=== PATIENT | male | born 1990 | race Caucasian/White ===

== ENCOUNTER 2021-03-20 08:30 | Outpatient (RCR) | payer SELFPAY ==
--- NOTE | 2021-03-20 09:00 | BH.COMM ---
Communication Note - Communication with Client Communication Note: Completed initial paperwork. No significant changes since pre-admission screening. Symptoms remain the same. Completed [place] Suicide Screening with low-moderate risk. Denies active suicidal ideations, plan, or intent. No hx of suicide attempts. Consulted with Dr. Mulligan with verbal order to admit to IOP with MDD F33.2
--- NOTE | 2021-03-20 10:10 | BH.SGPN.GN ---
Behaviors/Verbalizations/Mental Status: []Client alert and oriented, casually dressed and groomed. Eye contact good. Motor activity appropriate. Speech within normal limits. Affect constricted, mood depressed. Thoughts linear, logical, no signs of hallucinations or delusions. Client Response/Progress/Benefit: []Pt was well engaged in group AEB taking notes and engaging in the activity. Attentive during psychoeducation and discussed the importance of goal-setting with the group. Group identified potential benefits of having goals include: giving direction, giving purpose, improving mood, and better relationships. Group also worked together to identify barriers to goal-setting which included; negative self-talk, fear of change, unrealistic expectations, and fear of failure. Pt was quit during session, but often nodding and he participated in the activity. Benefited from increased awareness of benefits and barriers to goal-setting. First day of IOP tx. Will continue IOP tx to prevent decompensation, reduce suicidal ideations, and improve daily functioning. Narrative Note: []
--- NOTE | 2021-03-21 13:25 | PCM.BH.PSYEV ---
Psychiatric Evaluation Initial Evaluation Initial Evaluation: History of Present Illness: [] The patient is a 31-year-old single [place] male with a history of depression and anxiety who was brought to the emergency room while on vacation in [place] on December 09, 2020 with a panic attack while hunting which resulted in passive suicidal ideation. The patient was not admitted at that time although he says he was there for 36 hours. The patient was referred to the [facility] program by his psychiatrist, Dr. Levy. 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 The patient complains of severe depression, lack of motivation, apathy and no will to live. He states that he is not sure what the point of life is. Patient has a history of bone cancer in 2013 at age 23 in his arm which required having his radius removed and replaced with his own tibia. The patient now has limited range of motion there and had chemotherapy and had septic shock postoperatively resulting in a traumatic experience. The patient also complains of nerve pain since he had COVID in November 2019 which he describes as a prickly, warm feeling which goes into his arms bilaterally and down his spine. The patient's symptoms worsened after his bone cancer experience. For primary support he has his parents. He describes having a depressed mood and hopelessness and worthlessness. He denies guilt. He is isolating himself and is not motivated but he does state that he wants to enjoy life again. He exercises daily. He is not enjoying much that he does but his appetite is good and his weight is stable. His sleep has been somewhat decreased for the past 7 years. His energy level is okay but his concentration is decreased and he says he always feels like his head is in a jumbled. He denies suicidal ideation but does admit to having passive thoughts that he would not care if he . He denies plan for suicide, homicidal ideation, hallucinations, delusions or symptoms of jolie ever. He denies history of self-harm. He drinks 1 caffeinated soda every 2 days. He is a worrier by nature and and ruminates negatively. He last had a panic attack in 2011. He denies a history of OCD, eating disorder, trauma or PTSD. Other stressors include his father having a stroke in the past and his brother having a traumatic brain injury in 2009 at age 20 which left the brother unable to work full-time and not completely himself anymore. This brother is 2 years older than the patient and they were very close. Current Psychiatric Medications: [] Wellbutrin XL 675 mg p.o. every morning (decreased gradually from 300 mg over the past few months); Remeron 45 mg p.o. nightly (dose last increased January 21, 2021); Seroquel 50 mg p.o. nightly (was on higher doses in the past few months but weaned); Ativan 1 mg nightly as needed (he takes anywhere from on average 1/2 to 1 mg nightly but some nights he takes none). Patient also had an excellent electric stimulation at his home by a provider on an FDA approved device. He had this done January and February for 2 weeks and it takes about 3 weeks after the last treatment to feel improvement. And then he states that after 6 weeks he may get more improvement. This 6 weeks abby is today or tomorrow. He also states that it can take up to 3 months for it to finish giving him improvement and this deadline would be the first week of May so the patient is hesitant to change much in his medication regimen until then. Past Psychiatric History: [] Possibly 1 psychiatric admission in December 2020 for 1 day or less. No suicide attempts ever. The patient first was depressed and anxious as a child with depression occurring at age 20 and anxiety since childhood. He has taken a number of medications in the past including Lexapro which was discontinued in April 2020 and higher doses of Wellbutrin in the past which made him feel jittery and agitated. He also took Prozac and Zoloft in the past. He took some benzodiazepines in the past and tried [id number] valerian root and [place]'s wort and melatonin but is not using these now. Substance Use History: [] No substance use whatsoever. Non-smoker no rehab ever. Allergies: [] No known allergies Medications: [] Psych meds plus multivitamin only. Past Medical History: [] He had a history of bone cancer in his arm in 2013. He has a history of nerve pain since having COVID in November 2019 where his only symptom really was severe headache. He received IV chemotherapy with 5 chemotherapy drugs including Cytoxan, etoposide, doxorubicin and vincristine in 2014 or so. He had septic shock following his surgery. He has a history of right shoulder pain. Family Psychiatric History: [] Mother is 50 years old and his father is in his upper 50s. Mother and maternal grandmother have anxiety. His dad and his paternal aunt have a history of depression and anxiety. No substance issues in the family. No suicides in the family. Personal/Social History: [] He was born and raised in [place]. Her. His parents are and loving. He denies any physical, sexual or verbal abuse. He has 3 brothers. 1 brother 2-1/2 years older who had a traumatic brain injury at age 20. He has a brother 4 years younger and her brother 13 years younger and he is very close to all of his brothers. School was good for the patient and he had straight A's. He did not go to high school because the [facility] do not go to high school. 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 He had 1 serious girlfriend for 5 months but no current girlfriend. Legal History: [] No arrests. 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 Review of Systems: [] Shoulder pain and prickly feelings and feelings of warmth in his spine and arms since he had COVID in 2019. Vital Signs: [] Reviewed in nurses notes. Mental Status Examination: [] The patient is a 31-year-old male who is seen via telehealth and appears normal for stated age and is casually dressed and groomed with good hygiene. He has no psychomotor agitation or retardation. Eye contact is good and speech is normal rate and rhythm and fluent with no pressure. He is cooperative during the interview. Mood is depressed. Affect is constricted. Thought process is goal-directed and organized. Thought content: There is evidence of passive thoughts of . There is no evidence of suicidal ideation, plan for suicide, homicidal ideation, hallucinations or delusions. Reality testing is intact. Intelligence is above average. Judgment is intact. Insight is limited but some present. Impulsivity is low. Diagnoses: [] 1. Major depressive disorder, recurrent, severe without psychosis 2. Generalized anxiety disorder 3. History of radial arm bone cancer and IV chemotherapy with 5 drugs in 2013 4. Primary support and work issues Plan: [] The patient will start the IOP program at [facility] in [facility] as the structure, support, education, and group therapy will hopefully prevent worsening of the patient's symptoms which might require hospitalization. He felt safe during the interview and if it anytime he does not feel safe he will let us know or go to the emergency room. The risks, options, possible complications and side effects of the medications were discussed with the patient and he understands and accepts these. He refuses any medication changes at this time as he wishes to wait to see in the next day or 2 if he gets an improvement in his symptoms from his past Nexalin treatment and also he wishes to possibly wait until the first week of May when the improvement from the Nexalin treatment may end. I discussed with the patient the options of transcranial magnetic stimulation therapy or ECT also as an option. In addition the patient has not been on ketamine or tried MAO inhibitor. No changes were made today due to the patient's request. He does not feel any medications have helped him that much but he is uncertain overall. I will see the patient in follow-up in 1 week and he will continue to follow-up with his outpatient providers.
--- NOTE | 2021-03-21 13:42 | BH.DR.ITP ---
Initial Treatment Plan Patient Information Visit Information: ADMISSION DATE: EXPECTED LOS: 4-6 weeks Problems/Symptoms Problem #1:: Depression Symptom:: Sadness, hopelessness, worthlessness, apathy, anhedonia, biological disruption of sleep, decreased concentration, passive thoughts of Problem #2:: Anxiety Symptom:: Worry, rumination
--- NOTE | 2021-03-23 09:05 | BH.SGPN.GN ---
Behaviors/Verbalizations/Mental Status: [] Eye contact is good. Motor activity is appropriate. Appearance is casual. Speech is Appropriate. Mood is anxious. Affect is congruent. Thoughts are linear and logical. No evidence of psychosis. Reviewed daily check in sheet and no reports of suicidal ideations or intent. Client Response/Progress/Benefit: [] Pt participated when prompted. Attentive. Nodding during other patient's check-ins and appears to relate to discussions on coping with depression and FOF. Emotion for today is optimistic. Daily symptom tracker notes 1/5 for depression and 2/5 for anxiety which is improvement from 03/19/21. Pt's check-in was very brief. This is his second day in IOP. Shared that he more positive and hopeful this week and attributes this mainly to external events. He is contemplating going back to work. He has been off for several months. Group provided feedback and advice for first week in IOP. Progress reported. Benefited from group support and encouragment. Will continue in IOP to prevent decompensation, increase healthy coping, and improve functioning to return to work. Narrative Note: []
--- NOTE | 2021-03-23 10:10 | BH.SGPN.GN ---
Behaviors/Verbalizations/Mental Status: [] Eye contact is good. Motor activity is appropriate. Appearance is casual. Speech is Appropriate. Mood is depressed. Affect is flat. Thoughts are linear and logical. No evidence of psychosis. Client Response/Progress/Benefit: [] Engaged in experiential activity with peers. Attentive during psychoeducation on what is social support, the benefits of social support, and the things that keep us from utilizing social support for mental wellness. Attentive during interaction discussion and feedback from peers on these subjects AEB head nodding and note-taking. Able to see connection between experiential activity and group topic. Benefited from increased awareness of the benefits of social support in maintain mental health. Will continue in IOP to prevent decompensation, increase healthy coping, and improve functioning to return to work. Narrative Note: []
--- NOTE | 2021-03-23 11:05 | BH.SGPN.GN ---
Behaviors/Verbalizations/Mental Status: []Client alert and oriented, casually dressed and groomed. Eye contact good. Motor activity appropriate. Speech within normal limits. Affect constricted, mood anxious. Thoughts linear, logical, no signs of hallucinations or delusions. Client Response/Progress/Benefit: []Client remained an active participant throughout AEB contributing to discussion and taking notes throughout. Participated in discussion of the 4 types of support and the group listed examples for all types. Client reports wanting to work on increasing emotional social support,, noting this will help client challenge distortions, feel connected and authentic, and improve communication. Client plans to do this by acknowledging his emotions and being honest with himself, identifying one support person to talk to, and scheduling a time to talk with this support. Client seemed to benefit from identifying the type of support and how this support will aid in promoting overall mental wellness. Will continue with IOP tx to prevent decompensation, gain healthy coping skills, and reduce negative thinking. Narrative Note: []
--- NOTE | 2021-03-29 15:03 | BH.DS_ITS ---
Discharge Summary - Demographics Date of Admission:: 03/20/21 Discharge Date: 03/29/21 Presenting Problems at Admission:: Pt is a 30 y/o male with hx of MDD and AIDA. Recent visit to ER in 12/2020 for crisis evaluation while vacationing in [place]. Pt presented to the ER in 12/2020 due to suicidal ideations and panic. According to pt there were no available psych beds there he was sent home. Upon returning home to [place] he followed up with counseling and psychiatry however with limited benefits. Denies active suicidal ideations, plan, or intent. No hx of attempts. Reports passive thoughts of and survival ambivalence. I just have no will to live. Long-standing depression and passive thoughts of since 2013. Pt was diagnosed with bone cancer and underwent chemo in 2013. Endorses no pleasure in activities, hopelessness, low motivation, and isolation. He has not worked for several months due to his mental health. Poor concentration, poor focus. Denies HI or psychosis. Family hx of depression (father). Primary stressors include his father's stroke and his brother's brain injury. Denies HI or psychosis. Denies substance abuse. Discharge Diagnoses:: MDD F33.2 Reason for Discharge:: Pt reported to staff that he enjoyed the IOP, but it wasn't for him. He had reported improvement in depressive symptoms which he attributed to a FDA approved neurostimulator treatments that he had been receiving at home for the past several months. He reported to staff that he believed that it was starting to take effect. - Treatment Progress During Treatment & Response: Limited progress noted as patient attended only 3 days of IOP. He reported that his depression had improved however he attributed this to external events. Pt was attentive during groups however did not participate much in group discussions. Issues Still to be Addressed:: Depression, mental health impacting functioning (not working due to MH) Discharge Recommendations/Instructions:: Pt is currently linked with [facility] Garcia at [facility] for therapy. Linked with Dr. Levy for psychiatry. Encouraged to follow up with these providers. Discharge Handout: Complete Discharge Handout with client on aftercare options and continuity of care.
== END 2021-03-29 14:42 | disposition home or self-care (01) ==
LOC: BHIOP 08:30
PROVIDERS: Referring Provider Psychiatry & Neurology Psychiatry; Visit Provider Psychiatry & Neurology Psychiatry
DX: F33.2 Major depressive disorder, recurrent severe without psychotic features (principal); F41.8 Other specified anxiety disorders; Z85.830 Personal history of malignant neoplasm of bone; Z92.21 Personal history of antineoplastic chemotherapy
CPT/HCPCS: S9480; 90853

== ENCOUNTER 2021-06-21 09:40 | Outpatient (RCR) | payer SELFPAY ==
--- NOTE | 2021-06-21 09:00 | BH.SGPN.GN ---
Behaviors/Verbalizations/Mental Status: [] Eye contact is good. Motor activity is appropriate. Appearance is casual. Speech is Appropriate. Mood is anxious. Affect is congruent. Thoughts are linear and logical. No evidence of psychosis. Reviewed daily check in sheet and no reports of suicidal ideations or intent. Client Response/Progress/Benefit: [] Pt participated when prompted. Attentive. This was patients first day in IOP. He introduced himself and stated that he hopes to learn new skills, set goals in his life, and improve his quality of life. He states that he wants his mental health to be more stable. No progress noted. Group provided support, encouragement, and gave feedback/advice for his first day in IOP which was beneficial. Plan is to continue in [facility] to maintain safety, increased healthy coping, and improve functioning. Narrative Note: []
--- NOTE | 2021-06-21 11:18 | BH.SGPN.GN ---
Behaviors/Verbalizations/Mental Status: []Client alert and oriented, casually dressed and groomed. Eye contact fair to good. Motor activity appropriate. Speech within normal limits, limited input provided. Affect constricted, mood anxious, depressed. Thoughts linear, logical, no signs of hallucinations or delusions. Client Response/Progress/Benefit: []Pt responded well to session AEB listening attentively to peers and taking notes throughout. Pt attentive during continued psychoeducation on the different boundary types as well as the various boundary setting styles. Pt noted connecting most with the porous and rigid boundary setting styles. Pt shared he struggles at times to give himself compassion and relies heavily on the opinions of others. Pt was given a handout on strategies for healthy boundary setting. Pt identified wanting to work on improving his rigid boundaries by challenging himself to be more willing to make decisions without seeking approval or permission from others. Appeared to benefit from increasing insight into boundary setting and the impacts on mental health. Progress limited as pt first day in tx. Will continue IOP tx to prevent decompensation, improve depression management skills, and encourage healthy coping behaviors. Narrative Note: []
--- NOTE | 2021-06-21 14:26 | BH.COMM ---
Communication Note - Communication with Client Communication Note: Completed initial paperwork. No significant changes since pre-admission screening. Pt denies any active SI, plan, or intent. Admits to occasional, fleeting SI that last a few seconds-minutes. Denies he has ever had any intent to act on these thoughts. No history of attempts. Family is a protective factor. Consulted with Dr. Mulligan with verbal order to admit to IOP with dx of MDD F33.2
--- NOTE | 2021-06-26 09:00 | BH.SGPN.GN ---
Behaviors/Verbalizations/Mental Status: [] Eye contact is good. Motor activity is appropriate. Appearance is casual. Speech is Appropriate. Mood is depressed. Affect is flat. Thoughts are linear and logical. No evidence of psychosis. Reviewed daily check in sheet and no reports of suicidal ideations or intent. Client Response/Progress/Benefit: [] Pt participated when prompted. Attentive. Emotion for today is gloomy. Reports being extremely unmotivated over the weekend and in general. Its a chore to even complete a task. He is utilizing opposite-action to complete daily tasks which he states is ed beneficial. Group empathized with low energy and motivation being obstacle to progress. Group shared some thoughts on force self to complete activities that used to bring pleasure to re-wire the brain and kick start positive chemicals. Benefited from group support and encouragement. Limites progress as pt reports being disconnected. Will continue in IOP to maintain safety, increase healthy coping, and improve functioning. Narrative Note: []
--- NOTE | 2021-06-26 10:16 | BH.SGPN.GN ---
Behaviors/Verbalizations/Mental Status: []Pt alert and oriented, casually dressed and groomed. Eye contact good. Motor activity appropriate. Speech within normal limits. Affect constricted, mood depressed. Thoughts linear, logical, no signs of hallucinations or delusions. Client Response/Progress/Benefit: []Pt receptive to session, listening attentively and taking notes as the group brainstormed the positive and negative aspects of stress on physical and mental health. Identified racing thoughts and GI issues. Group worked together to define stress and provided input during discussion about eustress vs distress. Pt identified personal stressors which included: physical health, mental health, employment, isolation, pandemic, finances, and communication. Pt reports belief that his stress jar is very full and when it gets full, pt isolates and gets more depressed. Seemed to benefit from increased awareness of current stressors and impact of too much stress on the mind and body. Will continue IOP tx to prevent decompensation, gain healthy coping skills, and combat distortions. Narrative Note: []
--- NOTE | 2021-06-26 14:07 | BH.MDN ---
Multi-Disciplinary Note - Note 30-min Individual Time Started:: 11:13 Date: 06/26/21 Purpose of session/treatment goals addressed:: To gather information on client's current stressors, symptoms, triggers, and tx goals. Another goal was to build rapport and provide emotional support. Eye Contact:: Good Motor Activity:: Appropriate Appearance:: Casual Speech:: Soft Mood:: Dysthymic Affect:: Constricted Thoughts:: Linear, Logical, No evidence of hallucinations/delusions noted Staff Interventions:: psychoeducation on: - depression, rapport building, strengths perspective, treatment planning Client Response:: Pt responded well to session, open to meeting with therapist. Pt stated he wants to focus mostly on reducing and managing his depression. Pt shared he has been struggling with depression since his cancer diagnosis eight years ago, but the COVID pandemic made things worse. Pt stated he has been doing slightly better following a medication change, but he continues to struggle with hopelessness and purposelessness. Pt's goal are to feel better, get back to work, find meaning and purpose in life, reduce black and white thinking, and give himself credit. Pt would also like to get back into his old hobbies like playing softball, volleyball, and exploring carpentry. Pt has an outpatient counselor at [facility], but shared he has struggled to find anything that helps yet. Receptive to learning more about maintenance cycles and how to break a depressive maintenance cycle. Pt will be virtual tomorrow for psychiatry and attend in person on 06/29/21. Risks/Concerns:: Pt denies any active suicidal ideations, plan, or intent as of 06/26/21. Denies any HI. Future oriented. Progress Toward Goals/Plan:: Pt started IOP tx on 06/21/21 but reports enjoying IOP so far. Briefly participated in IOP tx in March 2021 but did not complete the program. Pt reports he has felt depressed and down for a while now and is ready to feel different. Pt currently endorses a depressed mood, low energy, lack of motivation, anhedonia, hopelessness, and worthlessness. Pt also struggles with negative thinking patterns and negative self-talk. Pt receptive during session and is established with outpatient mental health services. Will continue IOP tx to prevent decompensation, increase motivation, and improve daily functioning. Time Stopped:: 11:30
--- NOTE | 2021-06-26 14:13 | BH.MTP_ITS ---
[facility] Treatment Plan - Patient Information Program Physician:: Dr. Nicole Shelton Primary Therapist:: Irma BARROW - Psychiatric Diagnoses Psychiatric Diagnoses:: Major depressive disorder, recurrent, severe without psychosis F 33.2; Generalized anxiety disorder Diagnosis Code(s):: F 33.2 - Estimated LOS Estimated LOS (in weeks):: 6 Problem/Goal #1 - Problem/Goal #1 Stated Goal:: pt will decrease depressive symptoms, isolation, negative self- talk, and passive wishes due to major depression disorder. Description of Barriers: Pt currently finds little enjoyment in life and is struggling to find meaning in his life. Pt reports a lot of his friends are and have children, which impacts his social support. Pt endorses many negative thoughts about himself. Functional Impact: Pt is a 31-year-old male with a history of depression and anxiety. Pt was referred to [facility] following a recent admission to [facility] for a psychiatric admission due to depression and suicidal ideations. Pt had previously started IOP tx for 1-2 days in March 2021. Pt reports his depressive symptoms have been worsening since April 2021 and his functioning was impacted. Pt currently endorses low energy, lack of motivation, anhedonia, isolative behaviors, hopelessness, and a sense of purposelessness. 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 At admission, pt denied any active suicidal ideations, but he admits to fleeting, passive SI a few times a week. Pt reports feeling like life has no meaning. History of anxiety, but stated his anxiety is much improved since discharge from the hospital. Pt's symptoms are impacting his overall functioning. Goal Relevant Strengths/Supports: Pt is established with outpatient counseling and psychiatry. Pt reports his family is very supportive. - Objectives Objective #1 Stated Objective: pt will learn and utilize 2-3 healthy coping strategies to better manage depressive symptoms as shown by a reduced DSM-5 scores for depression. Interventions: Through group and individual sessions, therapist will help pt identify triggers and warning signs of depression and emotional dysregulation including emotional, physical, and behavioral changes. Therapist will teach pt various coping skills to manage her symptoms and give pt tangible resources to use to regulate emotions. Therapist will use cognitive restructuring techniques and help pt gain awareness of negative thoughts that reinforce guilt and depression. Therapist will provide psychoeducation on maintenance cycles and help pt learn ways to break unhealthy maintenance cycles. Therapist will help pt incorporate behavioral activation and assist pt in setting SMART goals. Discharge Criteria: Pt will have met this goal when can report learning and using at least 2 coping skills to manage depressive symptoms. Additionally, pt will have met this goal when depressive symptoms have reduced on the DSM-5 scale. Target Date: 08/02/21 Review Date: 07/12/21 Status: open Objective #2 Stated Objective: Pt will identify at least 2-3 negative self-talk messages used to reinforce negative core beliefs and replace thoughts with positive, realistic messages. Interventions: therapist will help pt identify distorted, negative beliefs about self and replace with more realistic, affirmative messages. Therapist will use CBT to help pt increase insight to the connection between thoughts, emotions, and behaviors. Therapist will encourage pt to practice thought challenging. Discharge Criteria: Pt will have achieved this goal when can verbalize at least 2 negative self-talk messages and effectively replace those thoughts with affirmative, realistic messages. Target Date: 08/02/21 Review Date: 07/12/21 Status: open Problem/Goal #2 - Problem/Goal #2 Stated Goal:: Pt will reduce anxiety symptoms while increasing ability to function on daily basis. Description of Barriers: Pt currently finds little enjoyment in life and is struggling to find meaning in his life. Pt reports a lot of his friends are and have children, which impacts his social support. Pt endorses many negative thoughts about himself. Functional Impact: Pt is a 31-year-old male with a history of depression and anxiety. Pt was referred to [facility] following a recent admission to [facility] for a psychiatric admission due to depression and suicidal ideations. Pt had previously started IOP tx for 1-2 days in March 2021. Pt reports his depressive symptoms have been worsening since April 2021 and his functioning was impacted. Pt currently endorses low energy, lack of motivation, anhedonia, isolative behaviors, hopelessness, and a sense of purposelessness. 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 At admission, pt denied any active suicidal ideations, but he admits to fleeting, passive SI a few times a week. Pt reports feeling like life has no meaning. History of anxiety, but stated his anxiety is much improved since discharge from the hospital. Pt's symptoms are impacting his overall functioning. Goal Relevant Strengths/Supports: Pt is established with outpatient counseling and psychiatry. Pt reports his family is very supportive. - Objectives Objective #1 Stated Objective: pt will identify 2-3 anxiety triggers and 2 calming coping skills to reduce anxiety as shown by decreased DSM-5 cross cutting symptom measure scores. Interventions: Therapist will help pt increase awareness of anxiety triggers and avoidance behaviors. Therapist will teach pt various calming and mindfulness strategies to promote emotional regulation and reduction of anxiety. Therapist will encourage pt to implement healthy coping skills on a regular basis and increase self-care in all areas. Discharge Criteria: pt will have accomplished this goal when can report at least 2 triggers for anxiety and 2 calming strategies to manage symptoms. Additionally, pt will have accomplished this goal when pt can report reduced DSM-5 cross cutting symptoms for anxiety. Target Date: 08/02/21 Review Date: 07/12/21 Status: open Objective #2 Stated Objective: pt will identify 2-3 cognitive distortions that lead to rumination and learn 2-3 ways to manage these thoughts to better manage anxiety Interventions: Therapist will provide education on the most common cognitive distortions and teach pt the connection between thoughts, emotions, and fe elings. Therapist will assist pt in identifying, challenging, and replacing dysfunctional thoughts with positive, more realistic thoughts. Therapist will use CBT and DBT techniques to help pt gain awareness of thinking errors and learn how to more effectively handle negative thoughts. Therapist will also use self-compassion to help pt set more realistic expectations for himself Discharge Criteria: Pt will have accomplished this goal when can identify at least 2 cognitive distortions and at least 2 coping skills to manage negative thoughts. Target Date: 08/02/21 Review Date: 07/12/21 Status: open
--- NOTE | 2021-06-26 14:13 | BH.PSA_ITS ---
Source of Information - Presenting Problems/Circumstances Problems, Referral Source, Mental Status, Client: Pt is a 31-year-old male with a history of depression and anxiety. Pt was referred to [facility] following a recent admission to [facility] for a psychiatric admission due to depression and suicidal ideations. Pt had previously started IOP tx for 1-2 days in March 2021. Pt reports his depressive symptoms have been worsening since April 2021 and his functioning was impacted. Pt currently endorses low energy, lack of motivation, anhedonia, isolative behaviors, hopelessness, and a sense of purposelessness. 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 At admission, pt denied any active suicidal ideations, but he admits to fleeting, passive SI a few times a week. Pt reports feeling like life has no meaning. History of anxiety, but stated his anxiety is much improved since discharge from the hospital. Pt's symptoms are impacting his overall functioning. Psychiatric Presentation - Psych Issues & Need for Admission Psychiatric Issues:: Major depressive disorder, recurrent, severe without psychosis F 33.2; Generalized anxiety disorder Past Psychiatric History - Treatment Hx Treatment History: Pt has a history of two psychiatric admissions total. The first one was in December 2020 for 2 days or so. The second admission was from May 04 to May 21, 2021 at [facility]. He denies any suicide attempts ever. He was anxious as a child and then had his first depression at age 20. He has taken a lot of medications in the past including Lexapro, Wellbutrin which made him feel jittery and agitated. He took Prozac and Zoloft in the past. He tried benzodiazepines in the past and [id number] valerian root and Urbano's wort but they were not helpful. He is also taken Seroquel and Ativan in the past. He tried an electric stimulation FDA approved device in the past also. Pt has been seeing Dr. Maguire as his psychiatrist for the past 3 months and states he has a good relationship with him. First hospitalization:: 12/2020 Most recent hospitalization:: 05/04/21-05/21/21 at [facility] Medication Trials:: Yes ECT Therapy:: Yes Age of first mental health symptoms: See treatment history Describe (age, circumstance, etc) any past hospitalizations: See treatment history Current providers for mental health treatment (counselor, psychiatrist, case repairer, etc.): Dr. Maguier for medication management and Fish raza [facility] for individual counseling. Development & Family of Origin - Childhood Significant Childhood Events: Pt reports he had a good childhood and denied any abuse. - Family Who currently lives in your home?: Pt lives at home with his parents and siblings. Describe family composition:: Pt was born and raised in [place]. Pt's parents are and loving and supportive of him. He denies any physical, sexual or verbal abuse. Pt has 3 brothers. He has one brother 2-1/2 years older than him who had a traumatic brain injury at age 20. He has a brother 4 years younger and a brother 13 years younger and he is very close to all of his brothers. Pt has been in one serious relationship, but is not currently in one. Pt has no children. - Family History Family Hx of Psychiatric or AOD Problems: Mother and maternal grandmother have anxiety. Father and paternal aunt have a history of depression and anxiety. No substance issues in the family. No suicides in the family. Ethnicity - Culture Do you identify yourself with any particular cultural, ethnic background, or community?: Yes - Pt is Denominational - Sexuality Sexual Orientation: Heterosexual Spirituality - Congregational Do you currently identify with any organized yarsanism?: Denominational - Pt gets a lot of support from the Denominational community. - Beliefs Is there a particular form of support from this community you can use for your recovery?: Yes Mental Status - Memory Recent Memory: Good Remote Memory: Good - Concentration Concentration: Good - Eye Contact Eye Contact: Good - Speech Speech: Articulate - Thought Process Thought Process: Ruminations Insight: Good Judgment: Fair Behavior: Normal - Orientation Orientation: Time, Person, Place, Situation - Appearance Appearance: Appropriate - Mood Mood: Depressed - Affect Affect: Constricted Suicide Assessment - Suicidal Ideation Have you ever felt like hurting yourself?: Yes Were you using ETOH/drugs at the time?: No Suicidal Intentional Rating Scale (SIRS): Suicidal thoughts (past) Physician Notification: If Active suicidal thoughts/Will not contract for safety is checked, contact physician and document in the Physician Notification section below. Violent Behavior/Abuse History - Homicidal Ideation Do you have any homicidal thoughts? If so, explain:: No Is there a known potential victim? If yes, who:: No - Abuse Have you ever been abused?: No - Life Events Are there any other significant life events?: Hardships, Family illness - Safety Do you ever feel threatened in your home? If yes, describe:: No Adult Social History - Age 19 to Present Describe your current support system:: Pt identifies his family, youth group, and isela. Substance Use - Substance Substance Use Type: None - He denies any substance use whatsoever. Non-smoker and no rehab ever. No vaping. No marijuana. Leisure/Social Activities - Interests What do you enjoy or might be interested in learning about?: Pt enjoys being in nature, hunting, playing sports, and spending time with family. Education & Occupational Histo - Education What is your level of education?: Middle School (Gr. 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 Service - Service Have you ever been in the ?: No Legal History - Records Have you had any past legal charges?: No Do you have any current legal charges?: No Have you ever been incarcerated? If yes, describe:: No - Court Orders Have you had any past court orders for psychiatric treatment?: No Do you have a present court order for psychiatric treatment?: No Problem Checklist - Current Problem Areas Problem List: Depressed mood/sad, Anxiety, Inattention, Sleep problems, Pertinent health issues, Additional psychosocial stressors Discharge Planning Needs - Anticipated Follow-Up Mental Health Center (Name/Phone Number):: [facility] Private Therapist/Psychiatrist:: Fish Garcia [phone] Manager Of Finance's Assessment - Client's Needs What are the client's strengths?: Pt is established with outpatient counseling and psychiatry. Pt reports his family is very supportive. Diagnoses - Diagnoses Diagnosis #1:: Major depressive disorder, recurrent, severe without psychosis F 33.2 Diagnosis #2:: Generalized anxiety disorder Interpretive Summary - Interpretive Summary Interpretive Summary: Pt is a 31-year-old Denominational single male who is currently living with his parents and two brothers who was referred to the IOP program at [facility] after being admitted to psychiatry at [facility] from May 04 to May 21, 2021 due to suicidal ideation, anxiety and insomnia. Pt participated in the [facility] IOP program for a few days in March 2021, but pt reports he was ?not in the right headspace? at that time. He has a long history of depression for the past 10 years which increased after being diagnosed with bone cancer 8 years ago. Pt states that he also had COVID in November 2019 and feels that his anxiety and depression worsened again after the COVID diagnosis. For primary support he has his parents and he is heavily involved in the [employer] [place] and community. He has no girlfriend currently. He is working part-time in the [employer] business but at limited hours due to his mental health issues. He states that since his hospitalization and discharge on May 21 he is feeling somewhat better. His anxiety is much improved but he states that he is still fairly depressed. He is less depressed than at the time of admission but still depressed. He denies hopelessness but he does say he occasionally has worthlessness feelings and he states that everything feels pointless. Pt reports this reduces motivation to do much. He is not enjoying anything he does still. Appetite is good and sleep is good at 8 to 9 hours a night, but sleep has been poor in the past. His energy level is okay during the day but his concentration is decreased. He denies feeling guilty. He is a worrier by nature but says he is not worrying as much lately but he still is of is avoiding things. He denies panic attacks, OCD, eating disorder, trauma, PTSD or history of self-harm. He admits to passive thoughts that he would not care if he on occasion about twice a week but this is less than before. He denies any suicidal ideation whatsoever now and has no plan for suicide. He also denies homicidal ideation, hallucinations, delusions or symptoms of jolie ever. He denies any substance use ever. No history of trauma or abuse. Family history of anxiety and depression. Pt?s older brother had a traumatic brain injury when pt was a teenager. Pt is close with all his family. Treatment Plan Recommendations - Recommendations Guidelines: Special needs identified to be included in the development of an individualized treatment plan regarding past psychiatric history and treatment, developmental events, family relationships/events/culture, past and/or current educational, occupational, social, and residential experience, and legal status. Recommendations:: Pt will start the IOP program at [facility] as the structure, support, education and group therapy will hopefully prevent worsening of the pt's symptoms which might require rehospitalization. He felt safe during the interview and if it anytime he does not feel safe he will let us know or go to the emergency room. The risks, options, possible complications and side effects of the medications were discussed between pt and IOP psychiatrist and he understands and accepts these. No medication changes were made today as they have been recently changed and he is closely following up with his outpatient psychiatrist. Pt encouraged to continue with out patient counseling.
--- NOTE | 2021-06-27 12:10 | BH.PSY.EVA_ITS ---
Psychiatric Evaluation Initial Evaluation Initial Evaluation: History of Present Illness: [] The patient is a 31-year-old [facility] single male who is currently living with his parents and 2 brothers who was referred to the IOP program at [facility] after being admitted to psychiatry at [facility] from May 04 to May 21, 2021 due to suicidal ideation, anxiety and insomnia. Patient participated in the [place] IOP program for a few days in March 2021. He has a long history of depression for the past 10 years which increased after being diagnosed with bone cancer 8 years ago. The patient states that he also had COVID in November 2019 and feels that his anxiety and depression worsened again after the COVID diagnosis. For primary support he has his parents and he is heavily involved in the [facility] [employer] and community. He has no girlfriend currently. 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 He states that since his hospitalization and discharge on May 21 he is feeling somewhat better. His anxiety is much improved but he states that he is still fairly depressed. He is less depressed than at the time of admission but still depressed. He denies hopelessness but he does say he occasionally has worthlessness feelings and he states that everything feels pointless. He says there is no spice to life. He is not motivated to do much. He is not enjoying anything he does still. Appetite is good and sleep is good at 8 to 9 hours a night. His energy level is okay during the day but his concentration is decreased. He denies feeling guilty. He is a worrier by nature but says he is not worrying as much lately but he still is of is avoiding things. He denies panic attacks, OCD, eating disorder, trauma, PTSD or history of self-harm. He admits to passive thoughts that he would not care if he on occasion about twice a week but this is less than before. He denies any suicidal ideation whatsoever now and has no plan for suicide. He also denies homicidal ideation, hallucinations, delusions or symptoms of jolie ever. He is using about 1 can of pop with caffeine per day but no other. Current Psychiatric Medications: [] Zyprexa 10 mg p.o. nightly and 2.5 mg p.o. twice daily (x1 month now); melatonin 3 mg p.o. nightly; Effexor XR 150 mg p.o. daily (since psych admit); Remeron 30 mg p.o. nightly Past Psychiatric History: [] He has a history of 2 psychiatric admissions total. The first 1 was in December 2020 for 2 days or so. The second admission was as dictated above from May 04 to May 21, 2021 at [facility]. He denies any suicide attempts ever. He was first depressed and anxious as a child and then had his first depression at age 20. He has taken a lot of medications in the past including Lexapro, Wellbutrin which made him feel jittery and agitated. He took Prozac and Zoloft in the past. He tried benzodiazepines in the past and [id number] valerian root root and Ehrenberg's wort but they were not helpful. He is also taken Seroquel and Ativan in the past. He tried an electric stimulation FDA approved device in the past also. Patient has been seeing Dr. Maguire as his psychiatrist for the past 3 months and states he has a good relationship with him. Substance Use History: [] He denies any substance use whatsoever. Non-smoker and no rehab ever. No vaping. No marijuana. Allergies: [] No known allergies Medications: [] Psych meds plus multivitamins only Past Medical History: [] History of bone cancer in his arm in 2013. He has a history of nerve pain and having COVID in November 2019. For his bone cancer he had IV chemotherapy with 5 drugs including Cytoxan, etoposide, doxorubicin and vincristine in 2013 or so. He had septic shock following his surgery. He has a history of right shoulder pain. Family Psychiatric History: [] His mother is in her upper 50s and father is in his upper 50s. Mother and maternal grandmother have anxiety. Father and paternal aunt have a history of depression and anxiety. No substance issues in the family. No suicides in the family. Personal/Social History: [] He was born and raised in [facility] [facility]. His parents are and loving and supportive of him. He denies any physical, sexual or verbal abuse. He has 3 brothers. He has 1 brother 2-1/2 years older than him who had a traumatic brain injury at age 20. He has a brother 4 years younger and a brother 13 years younger and he is very close to all of his brothers. He did well in school and had straight A's. He did not go to high school because he almost did not go to high school and they are active in the [facility] community. 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 He had 1 serious girlfriend in the past for 5 months but has no current girlfriend. Legal History: [] No arrests. No limo driver's license because the [facility] do not get limo driver's license. Review of Systems: [] He has a history of shoulder pain and prickly feelings and feelings of warmth in his spine and arms since COVID in 2019. Vital Signs: [] Vital signs and laboratory were reviewed in the records from his inpatient admission recently and in the nurses notes and were updated and the patient is deemed medically able to participate in the IOP program. Mental Status Examination: [] The patient is a 31-year-old male who is seen by telehealth. I am unable to see his eyes or face due to extremely poor dark lighting which the patient is unable to fix during the interview. Unable to evaluate eye contact. Speech is normal rate and rhythm and fluent with no pressure. He has no appearance agitation or retardation psychomotor. He is cooperative and pleasant during the interview. Mood is depressed. Affect is mildly constricted. Thought process is goal-directed and organized. Thought content: There is evidence of passive thoughts of on occasion. There is no evidence of suicidal ideation, plan for suicide, homicidal ideation, hallucinations or delusions. Reality testing is intact. Intelligence is above average. Judgment is intact. Insight is fair. Impulsivity is low. Diagnoses: [] 1. Major depressive disorder, recurrent, severe without psychosis 2. Generalized anxiety disorder 3. History of radial arm bone cancer and IV chemotherapy with 5 drugs in 2013 4. History of COVID in November 2019 5. Primary support and work issues Plan: [] The patient will start the IOP program at [facility] as the structure, support, education and group therapy will hopefully prevent worsening of the patient's symptoms which might require rehospitalization. He felt safe during the interview and if it anytime he does not feel safe he will let us know or go to the emergency room. The risks, options, possible complications and side effects of the medications were discussed with the patient and he understands and accepts these. No medication changes were made today as they have been recently changed and he is closely following up with his outpatient psychiatrist. The patient will continue to follow-up with his outpatient providers and I will see the patient in follow-up in 1 to 2 weeks. He has an appointment with his outpatient psychiatrist in 5 or 6 days.
--- NOTE | 2021-06-27 12:24 | BH.DR.ITP ---
Initial Treatment Plan Patient Information Visit Information: ADMISSION DATE: EXPECTED LOS: 4-6 weeks Problems/Symptoms Problem #1:: Depression Symptom:: Worthlessness, sadness, anhedonia, decreased concentration, passive thoughts of Symptom:: Recent suicidal ideation (May 2021) Problem #2:: Anxiety Symptom:: Worry, rumination
--- NOTE | 2021-06-29 14:24 | BH.MDN ---
Multi-Disciplinary Note - Note 60-min Individual Time Started:: 09:00 Date: 06/29/21 Staff Interventions:: thought challenging - reviewed thought log, CBT techniques - education on cognitive triangle and behavior activation, rapport building, strengths perspective, goal setting, taught coping skills Client Response:: Pt reported overall he has been doing okay in the last couple of days. Pt stated he went out with friends last night for dinner which he stated was good to get out of the house. Pt reported his main concern/struggle is not feeling like he has a purpose and meaning to life. Pt reported he has been struggling off and on with this since recovering from cancer 8 years ago. Pt reported his anxiety has significantly decreased in the last couple of weeks which he attributes to the medication working. Pt reported his depression has been more impactful recently. Pt stated his depression keeps him from enjoying things and impacted his job. 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 Pt connected with education about cognitive triangle, noting he has had some education about connection between thoughts, feelings and behaviors. Pt stated he has been engaging in behavior activation by making himself to things despite not wanting to do anything. Pt reported he can note that making himself not isolate or do certain tasks does make him feel better. Recognizes the alternative of behavior activation is doing nothing which he knows doesn't help him feel better. Pt shared thought log he completed in the last month. On the thought log pt was able to identify negative thoughts, identify the distorted thought and create a rational counterstatement. Pt shared one of his negative thoughts is I should be emotionally stronger. Pt stated this thought triggers other negative thoughts like Why can't I feel better? and Why does this bother me so much. Pt able to challenge negative thought and connected with therapist education about importance of looking for evidence against his negative thinking. Pt reported he is starting to have more clarity which has helped him with challenge distorted thoughts. Pt stated unrealistic expectations can cause more distress for him because his goals tend to be significantly higher than his current functioning which results in him not meeting the goal. Agreed he could benefit from practicing setting weekly goals to improve ability to set realistic goals. Pt reported goal for the week is to write down one win from his day everyday. Additional goal is to spend 20 minutes at least 2 times a week exercising. Risks/Concerns:: Denies current suicidal ideation, plan or intention to date. future focused. Progress Toward Goals/Plan:: Progress noted with pt reporting decrease in anxious symptoms which has helped pt be able to think more clearly and has decreased isolative behaviors. Pt continues to struggle with depressed symptoms and difficulty feeling like there is a purpose to life. Pt's negative thinking seems to be barrier to treatment progress because will predict a negative outcome to a situation or event which then makes it difficult for pt to be in the moment or enjoy himself. Pt to continue IOP to increase healthy coping skills, improve confidence, challenge negative thinking and prevent decompensation. Time Stopped:: 09:58
--- NOTE | 2021-07-03 09:05 | BH.SGPN.GN ---
Behaviors/Verbalizations/Mental Status: [] Eye contact is good. Motor activity is appropriate. Appearance is casual. Speech is Appropriate. Mood is depressed. Affect is flat. Thoughts are linear and logical. No evidence of psychosis. Reviewed daily check in sheet and no reports of suicidal ideations or intent. Client Response/Progress/Benefit: [] Pt participated at times during the group discussion. Group watched short video on CBT and discussed. Daily symptom tracker notes /5 for depression and /5 for anxiety. Emotion for today is hopeful. Mental health wins include pleasant weekend. Shared some of his activities over the weekend and how they helped. Notes decreased anxiety and depression however reports that his mood is still inconsistent and fluctuating. Did go to work yesterday and stated it wasn't too overwhelming. Progress noted per pt report. Benefited from group support, encouragement, and feedback. Will continue in IOP to maintain safety, increase healthy coping, and improve functioning. Narrative Note: []
--- NOTE | 2021-07-03 10:15 | BH.SGPN.GN ---
Behaviors/Verbalizations/Mental Status: []Pt alert and oriented, casually dressed and groomed. Eye contact good. Motor activity appropriate. Speech within normal limits. Affect constricted, mood dysthymic. Thoughts linear, logical, no signs of hallucinations or delusions. Client Response/Progress/Benefit: []Pt responded well to session AEB pt attentive throughout group discussion. Group discussed the origin of coping skills, examples of unhealthy coping, and why we use unhealthy coping skills. Pt was quiet, but he was nodding at the examples of unhealthy skills people use to ?carry the load.? Pt participated in experiential activity that showed the importance of external supports and internal coping skills. Appeared to benefit from increased knowledge of internal coping skills and external supports. Pt will continue IOP tx to prevent decompensation, reduce cognitive distortions, and improve self-worth. Narrative Note: []
--- NOTE | 2021-07-03 11:17 | BH.SGPN.GN ---
Behaviors/Verbalizations/Mental Status: []Client alert and oriented, casually dressed and groomed. Eye contact fair to good. Motor activity appropriate. Speech within normal limits. Affect congruent, mood anxious and depressed. Thoughts linear, logical, no signs of hallucinations or delusions. Client Response/Progress/Benefit: []Client responded well to session AEB taking notes and providing input and examples throughout, more actively engaged than in previous sessions. Group discussed the different categories of coping skills which included distraction, emotional release, grounding, self-love, and thought challenging. Client created a coping skill menu identifying various skills to try in each category. Client?s coping skill menu included: being more honest with himself, affirmations, and making a list of pros/cons when making a decision. Appeared to benefit from increasing repertoire of healthy coping skills. Will continue tx to further promote mood stability, improve depression and self-esteem, and prevent decompensation. Narrative Note: []
--- NOTE | 2021-07-04 09:03 | BH.SGPN.GN ---
Behaviors/Verbalizations/Mental Status: []Eye contact is good. Motor activity is appropriate. Appearance is casual. Speech is Appropriate. Mood is anxious and depressed. Affect is congruent. Thoughts are linear and logical. No evidence of psychosis. Reviewed daily check in sheet and no reports of suicidal ideations or intent. Client Response/Progress/Benefit: []Pt was an active participant in group discussion. Provided appropriate feedback and more engaged than in prior sessions. Pt reported feeling ?overwhelmed? today but is trying to use his skills to help reduce anxiety levels. Pt shared mental health wins of improving his use of positive self-talk and challenging times he recognizes an increase in self-criticism. Additionally shared using opposite action to help a friend earlier in the week and was glad he took the time to do so. Shared current stressor as continued anxiety about ?pushing myself to get back to work? Receptive of and appearing to benefit from group support, encouragement, and feedback. Will continue in IOP to prevent decompensation, improve daily functioning, as well as promote application of healthy coping skills for better managing anxiety and depression. Narrative Note: []
--- NOTE | 2021-07-04 10:10 | BH.SGPN.GN ---
Addendum entered and electronically signed by Irma Orozco 07/12/21 13:40: Reviewed and agree with findings. Original Note: Behaviors/Verbalizations/Mental Status: []Client alert and oriented, casually dressed and groomed. Eye contact good. Motor activity appropriate. Speech within normal limits. Affect congruent, mood anxious. Thoughts linear, logical, no signs of hallucinations or delusions. Client Response/Progress/Benefit: []Client responded well to session AEB listening attentively to others. Client participated in photo activity illustrating how perspective affects the way we view others and ourselves. Client was engaged throughout group discussion of what goes into perspective. Clinician provided psychoeducation on how anxiety and depression become ?lenses? that we see the world through.Client appeared connected to group discussion of how these lenses affect mental health treatment, nodding and taking notes throughout. Client appeared to benefit from increased knowledge of how anxiety and depression affects perspective. Will continue IOP treatment to increase anxiety management skills and decrease rumination to improve daily functioning. Narrative Note: []
--- NOTE | 2021-07-04 11:10 | BH.SGPN.GN ---
Behaviors/Verbalizations/Mental Status: []Pt alert and oriented, neatly dressed and groomed. Eye contact good. Motor activity appropriate. Speech within normal limits. Affect constricted, mood depressed. Thoughts linear, logical, no signs of hallucinations or delusions. Client Response/Progress/Benefit: []Pt was attentive and took notes, quiet unless prompted but sharing in her small group. Pt completed strengths exploration worksheet and identified personal strengths to include: curiosity, patience, self-control, kindness, and empathy. Pt shared that working to recognize these personal strengths more consistently will help improve pt?s mood and help him be more patient and understanding with himself. Shared wanting to focus on fostering personal strengths by practicing self-compassion when he he wants to be critical of himself. Benefited from identifying personal strengths and strategies for enhancing use of identified strengths. Pt to continue IOP tx to increase self-compassion, reduce negative thinking patterns, and increase motivation. Narrative Note: []
--- NOTE | 2021-07-04 14:27 | BH.MDN_ITS ---
Multi-Disciplinary Note - Note 45-min Individual Time Started:: 09:20 Date: 07/04/21 Purpose of session/treatment goals addressed:: To work on goal #1 objective #2 of pt's treatment plan. Another goal was to review goals from previous session. Eye Contact:: Good Motor Activity:: Appropriate Appearance:: Neat Speech:: Appropriate Mood:: Dysthymic Affect:: Congruent Thoughts:: Linear, Logical, No evidence of hallucinations/delusions noted Staff Interventions:: thought challenging, psychoeducation on: - Core and mistaken beliefs., CBT techniques, strengths perspective, other - administered self-assessment on the mistaken beliefs. Gave homework to practice the thought challenging using Socratic questioning. Client Response:: Pt responded well to session, open to meeting with therapist. Pt shared he has been working on his goal of exercising for 20 minutes a day and has done this two days so far this week. Pt also shared he has gained awareness of the distortions he uses and how unkind I am to myself. Pt reported he considers himself an understanding and patient person with others, but he is very critical and unrealistic with himself. Pt receptive to learning about mistaken beliefs and core beliefs. Pt completed the the mistaken belief questionnaire and reviewed answers with therapist. Based on how pt scored himself, pt connected with the beliefs that his worth is dependent on how well liked he is and how people see him as well as on how perfect he is in various areas of life. Pt stated he is able to intellectually see that these beliefs are distorted and he wants to not believe them, but pt has a strong emotional attachment to these. Pt was unable to identify where these beliefs originated. Pt shared he is realizing that his mistaken beliefs also make it hard to be intimate and form close relationships. Pt shared he worries that if people get too close, they will get to know the real me and not like pt. Pt receptive to practicing thought challenging techniques and eventually forming new core be liefs. Pt will identify three mistaken beliefs to question for homework. Risks/Concerns:: Pt denies any active suicidal ideations, plan, or intent as of 07/04/21. Pt continues to feel depressed, but he is working on his goals. Denies any HI. Progress Toward Goals/Plan:: Pt is responding well to session, pt has consistent attendance and pt reports following through with his goals from last session. Pt gaining awareness of his distorted thought patterns and negative self-talk. Pt continues to experience a depressed mood, negative self-talk, ruminations, lack of energy, purposelessness, and hopelessness. Pt also gained awareness of the negative core beliefs that reinforce depression and hopelessness. Pt will continue IOP tx to prevent decompensation, combat distortions, and gain self- compassion. Time Stopped:: 10:05
== END 2021-07-07 23:59 ==
LOC: BHIOP 09:40
PROVIDERS: Referring Provider Psychiatry & Neurology Psychiatry; Visit Provider Psychiatry & Neurology Psychiatry
DX: F33.2 Major depressive disorder, recurrent severe without psychotic features (principal); F41.1 Generalized anxiety disorder; Z85.830 Personal history of malignant neoplasm of bone; Z92.21 Personal history of antineoplastic chemotherapy; Z86.16 Personal history of COVID-19
CPT/HCPCS: S9480; 90832; 90834; 90837; 90853

== ENCOUNTER 2021-07-09 08:00 | Outpatient (RCR) | payer SELFPAY ==
--- NOTE | 2021-07-10 10:10 | BH.SGPN.GN ---
Behaviors/Verbalizations/Mental Status: []Client alert and oriented, neatly dressed and groomed. Eye contact good. Motor activity appropriate. Speech within normal limits. Affect constricted, mood dysthymic. Thoughts linear, logical, no signs of hallucinations or delusions. Client Response/Progress/Benefit: []Pt was an passive participant in group discussion, but did engage in experiential activity. Attentive during psychoeducation. Group had an interactive discussion on the benefits of emotional regulation in which pt was attentive to peers. Group identified several benefits to emotional regulation. Group also was able to identify how emotions can impact our communication leading to: using hurtful words, shutting down, feeling scattered and making assumptions. Pt participated in experiential activity and reported he felt unnerving because was out of control. Stated he coped by staying in the moment and focusing on the directions being given. Benefited from increased awareness into how emotions can impact one's ability to effectively communicate. Will continue IOP tx to improve view of self, continue use of thought challenge skills and prevent decompensation.
--- NOTE | 2021-07-10 11:10 | BH.SGPN.GN ---
Behaviors/Verbalizations/Mental Status: []Pt alert and oriented, neatly dressed and groomed. Eye contact good. Motor activity appropriate. Speech within normal limits. Affect constricted, mood dysthymic. Thoughts linear, logical, no signs of hallucinations or delusions. Client Response/Progress/Benefit: []Pt engaged in session AEB pt listening attentively to peers and providing input. Attentive during psychoeducation on 4 zones of regulation. Pt able to identify feelings and behaviors for each zone. Pt identified coping skills one can use to support self in each zone. Pt reported he is in the ?blue? zone today as he has low motivation and his mood is down. Pt reports he needs to use opposite action to accomplish some tasks for work to help himself today. Benefited from increased education on zones of regulation or stages of alertness for emotions and healthy coping skills to use for each zone. Will continue IOP tx to reduce negative thinking patterns that reinforce depression, improve mood stability, and increase self-confidence. Narrative Note: []
--- NOTE | 2021-07-10 14:05 | BH.MDN_ITS ---
Multi-Disciplinary Note - Note 45-min Individual Time Started:: 09:15 Date: 07/10/21 Purpose of session/treatment goals addressed:: To work on goal #1 of pt's treatment plan, discuss self-compassion and creating new core beliefs, and review homework from last session. Eye Contact:: Good Motor Activity:: Appropriate Appearance:: Neat Speech:: Appropriate Mood:: Depressed Affect:: Constricted Thoughts:: Linear, Logical, No evidence of hallucinations/delusions noted Staff Interventions:: thought challenging, psychoeducation on: - self-compassion and core beliefs, CBT techniques, strengths perspective, other - Reviewed homework from last session and worked on creating new core beliefs. Client Response:: Pt responded well to session, open to meeting with therapist. Pt reported he had a pretty good weekend as pt played volleyball with his youth group and he worked with his father two days over the weekend. Pt shared he went to a [employer] show and worked, which was an all day event, and he enjoyed it for the most part. Pt able to give self credit and realize that a few months ago, pt would not have been able to do this. Pt shared he beat himself up because he struggled with feeling tired and unmotivated Friday. Able to practice self- compassion and see that even healthy stressors can cause one to feel tired and need a day of rest. Pt completed homework from the previous session which was to right out three of his mistaken beliefs and challenge these by answering questions. Pt stated this was helpful, but he feels guilty sometimes for having these mistaken beliefs when I've had such a good life. Discussed how mistaken beliefs can form and how even feedback that is positive in intent, can cause unrealistic expectations of self. Pt realized that because his brother did not care about what people thought, pt strived to be the opposite because it pleased his parents. After processing mistaken beliefs, pt able to see that is core beliefs connect to being a failure and being alone. Pt and therapist worked on c reating a statement to develop new core beliefs. Pt identified I can have mistakes in life and still be successful and I am worthy of love and relationships even if I disappoint others. Pt receptive to homework on building evidence for new core beliefs. Risks/Concerns:: Pt denies any suicidal ideations, plan, or intent as of 07/10/21. Pt denies any HI. Pt is depressed, but future oriented. Progress Toward Goals/Plan:: Pt is responding well to session, pt has consistent attendance and pt completed homework from last session. Pt gaining awareness of his distorted thought patterns and negative self-talk. Pt reports this weekend he did not isolate, he worked, and he enjoyed time around people which is progress. However, pt continues to experience a depressed mood, negative self- talk, ruminations, lack of energy, purposelessness, and hopelessness. Pt is responding well to cognitive restructuring and willing to work on building evidence for new, healthier core beliefs. Pt will continue IOP tx to increase self-compassion, reduce negative thinking, and improve mood stability. Time Stopped:: 09:55
--- NOTE | 2021-07-12 09:10 | BH.SGPN.GN ---
Behaviors/Verbalizations/Mental Status: [] Eye contact is good. Motor activity is appropriate. Appearance is casual. Speech is Appropriate. Mood is depressed. Affect is flat. Thoughts are linear and logical. No evidence of psychosis. Reviewed daily check in sheet and no reports of suicidal ideations or intent. Client Response/Progress/Benefit: [] Pt participate when prompted. When asked it he wanted to share pt stated not really but I will. Daily symptom tracker notes /5 for depression and /5 for anxiety. Emotion for today is depressed. Mental health wins include I'm also trying to challenge my thoughts and remaining consistent with the program. Depression this AM stating its always a daily struggle with my depression. Hopeless that his mood will not improve. Group provided some feedback along the lines that feeling depressed or low currently is a moment and does not infer that this will last all day. No progress noted per pt report. Will continue in IOP to maintain safety, increase healthy coping, and improve functioning. Narrative Note: []
--- NOTE | 2021-07-12 10:10 | BH.SGPN.GN ---
Behaviors/Verbalizations/Mental Status: [] Eye contact is fair. Motor activity is appropriate. Appearance is casual. Speech is Appropriate. Mood is dysthymic. Affect is constricted. Thoughts are linear and logical. No evidence of psychosis. Client Response/Progress/Benefit: [] Pt was a passive participant in group discussion and activity. Attentive during psychoeducation on social stigma vs self-stigma. Pt was attentive to others during discussion on the question of What impacts how we define and view ourselves? Pt attentive as group identified several aspects that impact how we view ourselves which include; past experiences/exposure, our thoughts/current mental health state, our emotions, upbringing, and what other people tell us. Pt also participated in identifying examples of social stigma for mental health illness which included too sensitive, looking for attention, overly emotional, psycho, crazy, just an excuse, not working hard enough, lazy, mental health is not real, just a pessimist, and mental health can just be turned off. Pt did not share how stigma has impacted him. Benefited from increased awareness of how mental health stigma can impact individuals and treatment. Plan is to increase confidence, improve view of self and prevent decompensation.
--- NOTE | 2021-07-12 11:15 | BH.SGPN.GN ---
Behaviors/Verbalizations/Mental Status: [] Client alert and oriented, casually dressed and groomed. Eye contact fair to good. Motor activity appropriate. Speech within normal limits, quiet with limited input provided. Affect congruent, mood depressed. Thoughts linear, logical, no signs of hallucinations or delusions. Client Response/Progress/Benefit: [] Client did well to remain an attentive participant AEB client participating in the activity and listening attentively to others. Client does continue to struggle with active participation in group discussion however. Client appeared to connect with discussion challenging stigma by working on normalizing mental health and mental health tx. Group brainstormed strategies to combat social and perceived stigma in their own lives. Client shared one thing he can personally do to combat stigma is to practice more self-compassion regarding his own mental health. Appeared to benefit from increasing awareness of strategies to combat stigma. Recommended continued IOP tx to improve daily functioning, increase healthy coping, reduce self-deprecation and use of distorted thinking patterns. Narrative Note: []
--- NOTE | 2021-07-16 13:38 | BH.MTP_ITS ---
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 Pt contributes well during individual sessions and although he is quiet during group sessions, pt takes notes and contributes during small grou p discussion. Pt applies coping skills outside of IOP and reports overall his mood is improved and he is more active than he was. Status of Current Problems and Symptoms: Pt's symptoms of depression and anxiety are resolving, but there are still issues ongoing. Pt has been learning about cognitive distortions and this has increased pt's insight to negative core beliefs, unrealistic expectations, and lack of self-compassion. Pt is working on reframing thoughts while also building new core beliefs. Pt reports overall he is functioning better, but there are still days where pt struggles with lack of motivation and ends up isolating. Pt reports work is still a stressor, but pt does not feel like the job is unhealthy, pt feels he does not enjoy it because of his depression. Problem #1 Problem Name:: Depressive sx, negative self-talk, and wishes of Status of Goals:: Objective1- complete with ongoing work encouraged. Pt?s DSM-5 scores for depression decreased by 14% since admission. Pt reports using opposite action, thought challenging, and engaging in hobbies he enjoys. Pt no longer reports passive thoughts of . Pt continues to struggle with lack of motivation and lack of routine on days he does not work or comes to IOP. Objective 2- in progress. Pt is learning about the cognitive distortions and how to reframe negative self-talk. Pt can identify and combat distortions and pt continues to work on creating new, more balanced core beliefs. Team Recommendations:: Treatment tx recommends that pt continues working on these tx goals as well as creating a morning routine. Pt has been encouraged to increase self-care, especially on Sundays as this is often a very overst imulating day for pt. Problem #2 Problem Name:: Anxiety and avoidance. Status of Goals:: Objective 1- complete with ongoing work encouraged. Pt?s DMS-5 scores for anxiety have decreased by 57% since admission. Pt reports using self- talk, opposite action, and spending time outdoors. Pt reports overall his social anxiety has significantly decreased and pt is able to spend time around peers and family more often. However, pt continues to feel exhausted after long social interactions which pt ruminates on. Objective 2- complete with ongoing work encouraged. Pt is working on identifying and combatting distorted thought patterns that reinforce anxiety. Pt also working on creating more self-care goals to prevent social burnout. Team Recommendations:: Treatment tx recommends that pt continue to work on increasing self-care over the weekend as pt reports Sundays are so busy that he ends up crashing on Mondays and this triggers depression. Pt also encouraged to continue practicing thought challenging and goal setting.
--- NOTE | 2021-07-17 09:02 | BH.SGPN.GN ---
Behaviors/Verbalizations/Mental Status: [] Eye contact is good. Motor activity is appropriate. Appearance is casual. Speech is Appropriate. Mood is depressed. Affect is constricted. Thoughts are linear and logical. No evidence of psychosis. Reviewed daily check in sheet and no reports of suicidal ideations or intent. Client Response/Progress/Benefit: [] Client responded well to session AEB client sharing thoughts/feelings with group and listening attentively to peers. Client reported mental health positive as working on challenging negative thoughts and creating new core beliefs. Client reported thus far he hasn't seen a positive outcome of challenging his negative thoughts, but recognizes it will take time. Client stated additional mental health positive as being outside and mowing the lawn for several hours. Client reported he enjoyed being able to be outside in the nice weather. 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 Client stated feeling thankful this morning. Appeared to benefit from group support. Client to continue IOP to create new ways of thinking, increase confidence, and prevent decompensation.
--- NOTE | 2021-07-17 14:12 | BH.MDN_ITS ---
Multi-Disciplinary Note - Note 45-min Individual Time Started:: 10:30 Date: 07/17/21 Purpose of session/treatment goals addressed:: To work on goal #1 of pt's treatment plan and to review DSM-5 scores and progress as pt is up for review. Eye Contact:: Good Motor Activity:: Appropriate Appearance:: Neat Speech:: Appropriate Mood:: Other - content Affect:: Bright, Congruent Thoughts:: Linear, Logical, No evidence of hallucinations/delusions noted Staff Interventions:: thought challenging, motivational interviewing, CBT techniques, strengths perspective, reviewed DSM-5, goal setting, other - gave homework to practice behavioral experiments to build new core beliefs. Client Response:: Pt responded well to session, open to meeting with therapist. Pt reports overall he is doing better and pt stated he was not surprised that his scores reduced. Pt reports he has been trying to challenging negative thoughts, but he continues to struggle at times. Pt is also working on creating new core beliefs and is receptive to continuing to work on this. Pt did share he had a difficult day on Friday this where pt literally did nothing due to feeling unwell mentally. Pt able to bounce back and be social on Friday. Pt also spent several hours outside yesterday which was enjoyable per his report. Pt agreeable to setting some more self-care related goals to promote behavioral activation. Pt will either golf, mini-golf, or feed deer by next session. Pt reported he did not complete homework from last session, but pt has been trying to challenge distortions more. Pt receptive to continuing working on creating new core beliefs and today the focus was on behavioral experiments. Pt identified the new core belief he wants to work on as I can fail and still be successful. Pt set a few goals to work on which included focusing on having fun at his softball game tonight instead of focusing on playing well and he will fail on purpose in small ways. Pt was given a worksheet to complete as self- reflection after pt completes these goals. Risks/Concerns:: Pt denies any active suicidal ideations, plan, or intent. Pt reports an improved mood overall. Pt denies any HI. denies any passive thoughts of . Progress Toward Goals/Plan:: Pt responding well to IOP tx AEB overall reduction of symptoms by 19% from admission three weeks ago. Pt stated he is feeling better in some ways as pt reports less depression, less anxiety, and no SI. Pt continues to struggle with lack of motivation, negative core beliefs, lack of energy, social anxiety, and sleep. Pt reports his sleep has been bad for the past 8 years and pt was encouraged to consider a sleep study. Pt will continue IOP tx to promote further reduction of symptoms, develop healthier, more realistic core beliefs, and improve daily functioning. Time Stopped:: 11:15
--- NOTE | 2021-07-19 09:05 | BH.SGPN.GN ---
Behaviors/Verbalizations/Mental Status: [] Eye contact is good. Motor activity is appropriate. Appearance is casual. Speech is Appropriate. Mood is euthymic. Affect is full. Thoughts are linear and logical. No evidence of psychosis. Reviewed daily check in sheet and no reports of suicidal ideations or intent. Client Response/Progress/Benefit: [] Pt participated when prompted. Attentive. Daily symptom tracker notes 03/14 for depression which is improvement from earlier this week and last. Mental health wins include going to work and having a good day. He shared that he has continued to challenge and reframe thoughts and is beginning to see some benefits. Utilizing skills on a more consistent basis such as being mindful, reframing, challenging, and not judging myself so harshly. Daily symptoms tracker noted improve mood and ability to function. Progress noted per pt report. Benefited from group support, encouragement, and feedback. Will continue in IOP to maintain safety, increase healthy coping, and prevent decompensation. Narrative Note: []
--- NOTE | 2021-07-19 10:05 | BH.SGPN.GN ---
Behaviors/Verbalizations/Mental Status: [] Eye contact is good. Motor activity is appropriate. Appearance is casual. Speech is Appropriate. Mood is euthymic. Affect is full. Thoughts are linear and logical. No evidence of psychosis. Client Response/Progress/Benefit: [] Pt participated at times during group discussions. Attentive during psychoeducation on Healthy Relationships. Group worked together to identify benefits of healthy relationships which include; improves mental health, encouragement, motivation, accountability, validation, connection, someone to share experiences with, and personal growth. Group identified factors that contribute to a healthy relationship which included; communication, conflict resolution skills, trust, independence, and respecting boundaries. Group also identified factors that lead to unhealthy relationships which included; unrealistic expectations, over-reliance, assumptions, deception, and unhealthy habits. Actively participated in group experiential activity. Benefited from increased insight and awareness of benefits of healthy relationships and factors that contribute to unhealthy relationships. Will continue in IOP to maintain safety, prevent decompensation, increase healthy coping skills, and improve functioning to return to full-time work. Narrative Note: []
--- NOTE | 2021-07-19 11:08 | BH.SGPN.GN ---
Behaviors/Verbalizations/Mental Status: []Client alert and oriented, casually dressed and groomed. Eye contact good. Motor activity appropriate. Speech within normal limits. Affect congruent, mood euthymic and anxious. Thoughts linear, logical, no signs of hallucinations or delusions. Client Response/Progress/Benefit: []Client responded well to session, actively engaged AEB providing input and taking notes, progress noted in improved contribution to group discussion. Worked with group to process challenge activity from previous group and identify how barriers and strengths demonstrated in activity can relate to those within own personal relationships. Able to identify healthy and unhealthy forces impacting client?s own current relationships. Client identified open communication, trust, equal give and take, and collaboration as current strengths within one of his current relationships. Noted that his own difficulties with anger and anxiety have had unhealthy impacts on the relationship and that he tends to withdraw as a result. Client reflected that he would like to work on continuing to challenge himself to communicate openly and honestly to continue to improve the health of this relationship. Appeared to benefit from reflecting upon personal relationship strengths, as well as brainstorming strategies to build healthier relationships. Pt recommended to continue IOP tx to further promote mood stability, continue working on building healthy coping skills for anxiety and depression management, as well as prevent decompensation. Narrative Note: []
--- NOTE | 2021-07-24 09:05 | BH.SGPN.GN ---
Behaviors/Verbalizations/Mental Status: [] Eye contact is good. Motor activity is appropriate. Appearance is casual. Speech is Appropriate. Mood is euthymic. Affect is full. Thoughts are linear and logical. No evidence of psychosis. Reviewed daily check in sheet and no reports of suicidal ideations or intent. Client Response/Progress/Benefit: [] Pt participated when prompted. Attentive. Daily symptom tracker notes 04/14 for depression. Mental health wins are good weekend in regarding to his mood. Very upbeat with social gatherings. Other mental health win is that he has remained consistent with the IOP program. Reports feeling more calm and relaxed these last few days. His check-in was short which is typical. Smiling at times. Progress noted per pt report. Emotion for today is calm, relaxed. Primary stressor is day to day life and Life in general. Benefited from group support, encouragement, and feedback. Will continue in IOP to prevent decompensation, stabilize mood, and increase healthy coping skills. Narrative Note: []
--- NOTE | 2021-07-24 10:05 | BH.SGPN.GN ---
Behaviors/Verbalizations/Mental Status: []Eye contact is good. Motor activity is appropriate. Appearance is casual. Speech is Appropriate. Mood is anxious and euthymic. Affect is congruent. Thoughts are linear and logical. No evidence of psychosis. Client Response/Progress/Benefit: [] Pt was an active participant in group discussions. Attentive during psychoeducation on 4 types of conflict styles (Competing, Collaborating, Avoiding, and Accommodating). Contributing and attentive as group worked to define conflict and identify how conflict is helpful. Pt worked with peers in identifying barriers to addressing or managing conflict which included: learned behaviors, fear of disappointing or upsetting others, fear of being hurt, past negative experiences with conflict, and shutting down. Pt believes their conflict style is avoidant within the workplace and ?accommodating? in social settings. Noted often struggling to communicate with supports when her is upset or disagrees which prevents his needs from being met. Benefited from group by increasing insight and awareness of conflict, conflict styles, and obstacles to managing conflict. Pt to continue IOP to continue use of healthy coping, improve healthy communication and behavior activation skills, as well as prevent decompensation. Narrative Note: []
--- NOTE | 2021-07-24 10:10 | BH.SGPN.GN ---
Behaviors/Verbalizations/Mental Status: [] Eye contact is good. Motor activity is appropriate. Appearance is casual. Speech is Appropriate. Mood is depressed. Affect is flat. Thoughts are linear and logical. No evidence of psychosis. Client Response/Progress/Benefit: [] Pt participated at times during to group discussion. Attentive during psycho-education on 4 types of conflict styles (Competing, Collaborating, Avoiding, and Accommodating). Worked with group to define conflict and identify how conflict is helpful. With peers identified barriers to addressing or managing conflict which included: fear of upsetting others, embarrassing self, abandonment, past negative experiences with conflict, and shutting down. Pt believes her conflict style changes with the situation as he is a turtle in the workplace and accommodating in social situations. Benefited from group due to increase insight and awareness of conflict, conflict styles, and obstacles to managing conflict. Will continue in IOP to maintain safety, increase healthy coping, and improve daily functioning. Narrative Note: []
--- NOTE | 2021-07-26 09:10 | BH.SGPN.GN ---
Behaviors/Verbalizations/Mental Status: [] Eye contact is good. Motor activity is appropriate. Appearance is casual. Speech is Appropriate. Mood is depressed. Affect is flat. Thoughts are linear and logical. No evidence of psychosis. Reviewed daily check in sheet and no reports of suicidal ideations or intent. Client Response/Progress/Benefit: [] Pt participated when prompted. Attentive. Daily symptom tracker notes 5 for depression and 5 for anger. Pt reports worsening depression with no specific trigger. I thought I was getting better last week but I'm back to feeling consistently depressed. Ruminating extensively on his mental health and feeling that will never get better. Reports that he has attempted to use skills with limited benefit. This week has been challenging. Group provided empathy and offered some feedback. Insight that mental health progress is not linear and that despite feeling depressed today that does not negate the progress that he had in recent weeks. Group provided some thought reframing and encouragement which was beneficial. Regression noted per pt. No specif triggers and he is vague and guarded in group not giving specifics or stressors. Will continue in IOP to prevent decompensation increase healthy coping, and improve functioning. Narrative Note: []
--- NOTE | 2021-07-26 12:54 | BH.MDN ---
Multi-Disciplinary Note - Note 60-min Individual Time Started:: 10:30 Date: 07/26/21 Purpose of session/treatment goals addressed:: To address current symptoms, barriers, and stressors. Another goal was to work on setting goals to improve his morning routine and promote mood. Eye Contact:: Good Motor Activity:: Appropriate Appearance:: Neat Speech:: Soft Mood:: Depressed Affect:: Constricted Thoughts:: Linear, Logical, No evidence of hallucinations/delusions noted Staff Interventions:: thought challenging, motivational interviewing, CBT techniques, strengths perspective, goal setting - helped pt develop a goal for mornings to promote a routine Client Response:: Pt responded well to session, open to meeting with therapist. Pt reported last week he had string of several days where pt was feeling more naturally motivated and enjoying things. Pt shared during this time he was spending a lot of time outdoors, was going to youth groups, and was playing sports. Pt stated he began feeling depressed again on Friday of this week and it has continued to today. Pt expressed frustration with his mood sharing, I don't think I've done anything different. Pt acknowledges that when he feels down his perspective on progress and the future become distorted and negative. Pt was able to challenge these thoughts and identify progress he has made since starting IOP and he shared his parents have also seen progress. Pt receptive to thought challenging as well as identifying ways to help pt overcome this setback. Through further exploration, pt gained insight that his more depressed days often occur early in the week following a busy day on Friday. Pt also reports that when he wakes up he thinks another day of this which reinforces pt's depression and lack of motivation. Pt shared even though he does not get good sleep, he still lays in bed most days if he does not have to work and on the days he has IOP he wakes up right before he leaves. Discussed how this could be impacting pt's perspective and motivation. Pt responded well to motivational interviewing when challenged to create a morning routine as pt laughed and shared this way isn't working I guess. Pt willing to wake up 30 minutes earlier on the days he has IOP and will sit and drink coffee. Pt also plans to set three intentions a day to help increase motivation. Risks/Concerns:: Pt denies any suicidal ideations, plan, or intent as of 07/26/21. Pt denies any passive SI or wishes of . However, pt does report he is feeling more down this week. Progress Toward Goals/Plan:: Pt continues to respond well to IOP AEB his consistent attendance and follow through with goals. Pt reports last week he had six good days, but since Friday, pt has been struggling with increased depression. Pt able to challenge his perspective and recognize that overall he is improving each week per his report. Pt continues to endorse lack of motivation, poor sleep which is chronic, anhedonia at times, and negative thinking. Pt reports his anxiety has significantly reduced and he is engaging in more activities overall. However, pt continues to struggle with motivation and enjoyment, especially at work. Pt will continue IOP tx to prevent decompensation, improve overall functioning, and develop a routine to promote mental health. Time Stopped:: 11:23
--- NOTE | 2021-07-27 11:15 | BH.SGPN.GN ---
Behaviors/Verbalizations/Mental Status: [] Client alert and oriented, casually dressed and appropriately groomed. Eye contact fair. Motor activity WNL. Speech within normal limits, soft. Affect constricted, mood dysthymic. Thoughts linear and intact. no signs of delusions or hallucinations. Client Response/Progress/Benefit: [] Client responded well to session AEB listening attentively to peers and providing some input during small group discussion. Client attentive to group discussion about impact our beliefs can have on how we set boundaries. Participated in small group discussion brainstorming various strategies for improving healthy personal boundaries. Client agreeable to complete provided worksheet for homework, in which she is to identify if she has porous, rigid or healthy boundaries for emotional, physical, intellectual, sexual, material, and time boundaries. Seemed to benefit from increased awareness of how different boundary styles can impact mental health. Will continue IOP tx to continue use of healthy coping skills, challenge negative thinking and prevent decompensation.
--- NOTE | 2021-07-31 09:10 | BH.SGPN.GN ---
Behaviors/Verbalizations/Mental Status: [] Eye contact is good. Motor activity is appropriate. Appearance is casual. Speech is Appropriate. Mood is depressed. Affect is flat. Thoughts are linear and logical. No evidence of psychosis. Reviewed daily check in sheet and no reports of suicidal ideations or intent. Client Response/Progress/Benefit: [] Pt participated when prompted. Attentive. Daily symptom tracker notes 2/5 for depression and /5 for anxiety. Emotion for today is content. Mental health win is returning to identifying and challenging negative thoughts and cognitive distortions. He elaborated on how absolute thinking and shoulds/must impact him on a daily basis. Shared that every small thing that he does not complete well makes him think that he is a failure. He shared a quote that has been a helpful affirmation. Looking forward to upcoming events on . He has identified work as being very stressful for him and again has decided to step back from it which is a good thing. He does not share much about the stressors at work expect to say that he is very hard on himself. Progress noted per pt report. Group provided support and empathized with his fear of failure. Will continue in IOP to prevent decompensation and improve functioning. Narrative Note: []
--- NOTE | 2021-07-31 10:12 | BH.SGPN.GN ---
Behaviors/Verbalizations/Mental Status: []Client alert and oriented, casually dressed and groomed. Eye contact good. Motor activity appropriate. Speech within normal limits. Affect constricted, mood dysthymic. Thoughts linear, logical, no signs of hallucinations or delusions. Client Response/Progress/Benefit: []Client passive participant AEB limited contributions to discussion, however did provide some contributions during small group discussion. Client did appear to be attentive to others and taking notes. Client was engaged throughout discussion introducing the topic of self care and its importance. Group identified myths about self care, such as self care is selfish, self-indulgent, takes too much time, has to be fun, and has to be earned. Worked with small group to challenge the myths of self-care that can become barriers to engaging in self-care. Attentive as group identified self-care benefits to include: improved mood, reduce stress, increased resilience, and help maintain stability. Client appeared to benefit from increased knowledge of the importance and benefits of self care. Will continue IOP treatment to increase social connection to supports and decrease feelings of hopelessness.
--- NOTE | 2021-07-31 11:20 | BH.SGPN.GN ---
Behaviors/Verbalizations/Mental Status: []Client alert and oriented, casually dressed and groomed. Eye contact good. Motor activity appropriate. Speech within normal limits. Affect congruent, mood euthymic. Thoughts linear, logical, no signs of hallucinations or delusions. Client Response/Progress/Benefit: []Client engaged participant AEB completing self-assessment worksheet and contributing input during discussion. Participated throughout group discussion on the various areas of self-care, benefits, and types of self-care activities for each area. Client completed worksheet which identified current self-care practices and what self-care activities client wants to start using. Client selected emotional self-care as an area he would benefit from practicing more consistently. Client plans to do this by acknowledging his accomplishments on a more consistent basis. Client reports he is doing well with spiritual self-care but would like to continue to focus on maintaining self-care in this area by practicing regular prayer. Appeared to benefit from completing the self-care evaluation and gaining insights into current self-care practices, as well as identifying areas in which she would like to improve upon. Will continue IOP tx to improve thought challenging, reduce distortions, and maintain gains. Narrative Note: []
--- NOTE | 2021-08-03 09:02 | BH.SGPN.GN ---
Behaviors/Verbalizations/Mental Status: []Eye contact is good. Motor activity is appropriate. Appearance is casual. Speech is Appropriate. Mood is anxious and euthymic. Affect is congruent. Thoughts are linear and logical. No evidence of psychosis. Reviewed daily check in sheet and no reports of suicidal ideations or intent. Client Response/Progress/Benefit: [] Pt was an active participant in group discussion and provided feedback throughout. Pt reported feeling ?neutral? today, which pt discussed practicing acceptance of. Explained trying to force emotions on himself in the past and becoming upset when he didn?t feel as he had expected himself to or thought he ?should?. Shared accepting his emotion as it is as personal progress. Additional progress noted in report of improved used of self-compassion and thought challenging. Pt shared current stressor as maintaining the progress he has made since IOP admission and reminding himself that progress takes time. Able to identify skills to continue to utilize to maintain progress post IOP discharge. Benefited from group support, encouragement, and feedback. Will continue in IOP to continue to improve daily functioning, and application of healthy coping skills as pt completes discharge planning. Narrative Note: []
--- NOTE | 2021-08-03 11:15 | BH.SGPN.GN ---
Behaviors/Verbalizations/Mental Status: []Pt alert and oriented, neatly dressed and groomed. Eye contact good. Motor activity appropriate. Speech within normal limits. Affect constricted, mood calm. Thoughts linear, logical, no signs of hallucinations or delusions Client Response/Progress/Benefit: []Pt responded well to session AEB pt listening attentively to others and providing input during group discussion on the pay offs and costs of the different communication styles. Pt reported he is mostly passive which produces internal conflict and leads to his supports assuming his needs. Attentive during psychoeducation on interpersonal DBT skill [place]. Pt set a goal to work on asserting one thing he needs within the next few weeks. Pt seemed to benefit from increasing awareness of healthy strategies to improve communication. Pt will continue IOP tx for one more session to establish aftercare and reinforce healthy coping skills. Narrative Note: []
--- NOTE | 2021-08-03 13:23 | BH.MDN ---
Multi-Disciplinary Note - Note 30-min Individual Time Started:: 10:20 Date: 08/03/21 Purpose of session/treatment goals addressed:: To work on pt's maintenance plan to promote gains made in IOP. Another goal was to discuss discharge and aftercare. Eye Contact:: Good Motor Activity:: Appropriate Appearance:: Neat Speech:: Appropriate Mood:: Euthymic Affect:: Constricted Thoughts:: Linear, Logical, No evidence of hallucinations/delusions noted Staff Interventions:: thought challenging, discharge planning, reviewed DSM-5, other - worked on maintenance plan Client Response:: Pt responded well to session, open to meeting with therapist. Pt reports he is ready to discharge from IOP as pt feels he has met his goals and is feeling better. Pt shared he continues to stay active and he is doing better this week than last week. Pt has outpatient appointments set up following IOP discharge. Pt receptive to working on a maintenance plan which had triggers, warning signs, and coping skills. Pt completed one for depression and identified triggers such as winter, physical illness, and setbacks. Pt's warning signs included increased negative thinking, isolation, laying in bed more, and lack of interest in hobbies. Pt identified coping skills such as thought challenging, opposite action, talking with family, and using positive self-talk. Pt also identified things that will make his depression worse such as not challenging distortions and staying isolated. Pt shared he is surprised to have graduated from [facility] as it was out of pt's comfort zone. Pt stated the experience was helpful. Risks/Concerns:: Pt denies any suicidal ideations, plan, or intent as of 08/03/21. No HI. No passive thoughts of . Progress Toward Goals/Plan:: Pt to discharge from IOP tx on 08/07/21 as he has met his treatment goals AEB overall DSM-5 scores decreased by 42% from admission. Depression decreased by 29%, and anxiety by 43%. Pt self-reports improved mood, less negative thinking, and being better able to cope with stressors. 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 Time Stopped:: 10:55
--- NOTE | 2021-08-07 08:24 | BH.AFTERPLAN ---
Aftercare Plan - Demographics Treatment End Date:: 08/07/21 Psychiatrist:: Nicole Shelton Psychiatrist Office #:: [phone] [facility] Therapist:: Irma Orozco Therapist Phone #:: [phone] - Plan Details Progress/Aftercare Plan Details:: Pt responded well to IOP tx and he was consistent throughout his time in IOP. Pt was consistent with homework and he frequently reported using coping skills outside of IOP. When Pt started IOP tx he was feeling depressed, unmotivated, and not experiencing kye in life. Pt was struggling with many negative thoughts and self-talk. Now, Pt is able to challenge his perspective, use healthy coping skills consistently, and bounce back quicker from setbacks. Pt has been more active physically and socially which has helped pt cope and feel connected. Pt also reports less negative self-talk and a better understanding of the core beliefs that have reinforced depression. Pt?s overall DSM-5 scores decreased by 42%, depression decreased by 29%, anxiety decreased by 43%, and anger decreased by 33%. Strategies for Success:: 1. Continue to use positive self-talk when you feel down, not enough, or experience a stressor. 2. Remember thoughts are thoughts NOT facts! Just because we think/feel a certain way doesn?t mean we are our thoughts! 3. self-compassion and remember to keep building evidence for your desired core beliefs. 4. Opposite action! Continue to push yourself, spend time with friends/family when you want to isolate or face what is making your anxious 5. Write down your feelings and share them with supports?Keep communicating. 6. Stay active! This could mean physically, productively, or socially. 7. Challenge your negative thoughts and be proactive with thought challenging 8. Maintenance! Self-care is important and so is checking in with yourself each day. 9. keep track of your wins and give yourself credit! - Appointments Appointments/Referrals to Other Services:: 1. follow up with Fish at [facility] for individual counseling. Apt on 09/13/21. 2. Follow up with Dr. Sanders for medication management. Apt 08/10/21. 3. IOP aftercare if you choose and can start this on 08/16/21. - Medications Home Medications: Home Medications melatonin 3 mg PO QHS 06/27/21 mirtazapine [Remeron] 30 mg PO QHS 06/27/21 olanzapine [Zyprexa] 2.5 mg PO BID 06/27/21 olanzapine [Zyprexa] 10 mg PO QHS 06/27/21 venlafaxine [Effexor XR] 150 mg PO DAILY 06/27/21
--- NOTE | 2021-08-07 09:00 | BH.SGPN.GN ---
Behaviors/Verbalizations/Mental Status: [] Eye contact is good. Motor activity is appropriate. Appearance is casual. Speech is Appropriate. Mood is euthymic. Affect is full. Thoughts are linear and logical. No evidence of psychosis. Reviewed daily check in sheet and no reports of suicidal ideations or intent. Client Response/Progress/Benefit: [] Pt participated when prompted. Attentive. Mental health win is finishing the [facility] program. Shared that today is his last day in [facility] and he discussed some of the progress that he has made over the past several weeks. He found the psychoeducation to be helpful. Its most beneficial for me to take things moment to moment and day by day. Shared how he would often focus to much on the past or the future. Proud of himself for completing the program and shared his struggles early on in [facility] which almost led to stopping. Benefited from group support and encouragement. Will be discharged from [facility] today. Narrative Note: []
--- NOTE | 2021-08-07 09:28 | BH.DS ---
Discharge Summary - Demographics Date of Admission:: 06/21/21 Discharge Date: 08/07/21 Presenting Problems at Admission:: Pt is a 31-year-old male with a history of depression and anxiety. Pt was referred to [facility] following a recent admission to [facility] for a psychiatric admission due to depression and suicidal ideations. Pt had previously started IOP tx for 1-2 days in March 2021. Pt reports his depressive symptoms have been worsening since April 2021 and his functioning was impacted. Pt currently endorses low energy, lack of motivation, anhedonia, isolative behaviors, hopelessness, and a sense of purposelessness. 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 At admission, pt denied any active suicidal ideations, but he admits to fleeting, passive SI a few times a week. Pt reports feeling like life has no meaning. History of anxiety, but stated his anxiety is much improved since discharge from the hospital. Pt's symptoms are impacting his overall functioning. Discharge Diagnoses:: Major depressive disorder, recurrent, severe without psychosis F 33.2; Generalized anxiety disorder Reason for Discharge:: Pt has made significant progress towards his treatment goals AEB his reduction in DSM-5 symptom scores, self-report of increased ability to managing symptoms, and improved functioning. Pt no longer meets criteria for [facility] level of care and will transition to outpatient counseling and potentially IOP aftercare. - Treatment Progress During Treatment & Response: Pt responded well to IOP tx and he was consistent throughout his time in IOP. Pt was consistent with homework and he frequently reported using coping skills outside of IOP. When Pt started IOP tx he was feeling depressed, unmotivated, and not experiencing kye in life. Pt was struggling with many negative thoughts and self-talk. Now, Pt is able to challenge his perspective, use healthy coping skills consistently, and bounce back quicker from setbacks. Pt has been more active physically and socially which has helped pt cope and feel connected. Pt also reports less negative self-talk and a better understanding of the core beliefs that have reinforced depression. Pt?s overall DSM-5 scores decreased by 42%, depression decreased by 29%, anxiety decreased by 43%, and anger decreased by 33%. Issues Still to be Addressed:: Pt can continue to benefit from outpatient counseling to reinforce healthy coping skills, improve self-talk, and strengthen new core beliefs. Pt is currently not working but in the future pt could benefit from exploring his interests and finding kye in work. Lastly, pt could benefit from creating consistent routines for each day, week, and month. Discharge Recommendations/Instructions:: Pt will continue seeing his outpatient providers for medication management and individual counseling. Pt has an appointment with his therapist, Fish, at [facility] on 09/13/21. Pt encouraged to participate in IOP aftercare to help fill the gap of service and maintain gains. Pt reported he is ?highly considering this? and therapist will follow up with pt again on this later in the week. Pt also has an appointment with his psychiatrist, Dr. Maguire, on 08/10/21. Discharge Handout: Complete Discharge Handout with client on aftercare options and continuity of care.
--- NOTE | 2021-08-07 11:15 | BH.SGPN.GN ---
Behaviors/Verbalizations/Mental Status: []Client alert and oriented, neatly dressed and groomed. Eye contact fair. Motor activity appropriate. Speech within normal limits. Affect constricted, mood euthymic. Thoughts linear, logical, no signs of hallucinations or delusions. Client Response/Progress/Benefit: []Client responded well to session, attentive. Did well to process activity and work with group to relate the strategies used to overcome barriers in the activity to managing change in own life. Client identified a change they would like to have a more positive outlook on life. Client identified being in the action stage of change currently. Client reported goal is to continue to cultivate a positive attitude toward life and identify at night one positive thing from the day. Client stated recognizing behaviors and thoughts that impact her progress and identify benefits of various changes. Appeared to benefit from identifying a small goal to work towards. Client has shown treatment progress since starting IOP and will discharge today.
== END 2021-08-07 12:38 | disposition home or self-care (01) ==
LOC: BHIOP 08:00
PROVIDERS: Referring Provider Psychiatry & Neurology Psychiatry; Visit Provider Psychiatry & Neurology Psychiatry
DX: F33.2 Major depressive disorder, recurrent severe without psychotic features (principal); F41.1 Generalized anxiety disorder; Z85.830 Personal history of malignant neoplasm of bone; Z92.21 Personal history of antineoplastic chemotherapy; Z86.16 Personal history of COVID-19
CPT/HCPCS: S9480; 90832; 90834; 90837; 90853